=== PATIENT | male | born 1955 | race African-American/Black ===

== ENCOUNTER 2018-09-30 22:47 | Inpatient (IN) | payer MEDICARE, OTHER ==
[~2018-09-30] VITALS: Ht 177.8 cm; Wt 82.3 kg
[~2018-09-30 22:47] MED LIST: NKM
--- NOTE | 2018-09-30 23:19 | Emergency Room Report ---
History of Present Illness General Chief Complaint: Altered Level of Consciousness Source: Patient, EMS Present Illness HPI Patient is a 62-year-old male presented after increased altered mental status and had a near syncopal episode. Patient stated that he "fell out"Patient denies any current complaints. He denies any recent alcohol or drug use. He denies any headache. Patient said he had onset of symptoms approximately 7 PM. He denies taking any medications currently. Allergies: Coded Allergies: MORPHINE (Verified Allergy, Mild, 12/14/09) Patient History Past Medical History: see triage record Reviewed Nursing Documentation: PMH: Agreed; PSxH: Agreed Nursing Documentation-PMH Past Medical History: No Stated History Review of Systems All Other Systems: limited - Review of systems: Review systems is limited by patient's being a poor historian Physical Exam Vital Signs Date Time Temp Pulse Resp B/P (MAP) Pulse Ox O2 Delivery O2 Flow Rate FiO2 09/30/18 22:41 98.2 97 18 158/100 97 Room Air Sp02 EP Interpretation: reviewed, normal General Appearance: normal inspection, well appearing, no apparent distress, alert, GCS 15 Head: atraumatic ENT: normal ENT inspection, hearing grossly normal, normal voice Neck: normal inspection, full range of motion, supple, no bony tend Respiratory: normal inspection, lungs clear, normal breath sounds, no respiratory distress, no retraction, no wheezing Cardiovascular #1: regular rate, rhythm, no edema Gastrointestinal: normal inspection, normal bowel sounds, non tender, soft, no guarding, no hernia Genitourinary: no CVA tenderness Musculoskeletal: normal inspection, back normal, normal range of motion Neurologic: normal inspection, alert, responsive, speech normal Psychiatric: mood/affect normal Skin: normal inspection, normal color, no rash Medical Decision Making Diagnostic Impression: Primary Impression: Altered level of consciousness ER Course Patient presented for altered mental status. Differential diagnosis included but was not limited to ischemic stroke, subarachnoid hemorrhage, hypoglycemia, spinal cord injury, neurodegenerative disorder, urinary tract infection, hypoxemia. Because of complexity of patient's case laboratory testing and imaging studies were ordered. Patient was noted to have initially market confusion. Patient was noted to have EKG interpreted by me with normal sinus rhythm with a rate of [address] or T wave changes. Patient was noted to have prolonged QT. Patient given IV magnesium laboratory testing was essentially unremarkable. CT the head read by radiology showed global cortical involutional changes and sequela of chronic small vessel ischemia.Patient was discussed with Dr. Vadim Noel persistent confusion and uncontrolled hypertension. Patient was given medications for hypertension. Labs Test 09/30/18 23:30 10/01/18 00:03 White Blood Count 4.7 K/UL (4.8-10.8) Red Blood Count 5.08 M/UL (4.70-6.10) Hemoglobin 14.9 G/DL (14.2-18.0) Hematocrit 45.5 % (42.0-52.0) Mean Corpuscular Volume 90 FL (80-99) Mean Corpuscular Hemoglobin 29.3 PG (27.0-31.0) Mean Corpuscular Hemoglobin Concent 32.7 G/DL (32.0-36.0) Red Cell Distribution Width 15.2 % (11.6-14.8) Platelet Count 206 K/UL (150-450) Mean Platelet Volume 5.9 FL (6.5-10.1) Neutrophils (%) (Auto) 60.0 % (45.0-75.0) Lymphocytes (%) (Auto) 25.7 % (20.0-45.0) Monocytes (%) (Auto) 8.6 % (1.0-10.0) Eosinophils (%) (Auto) 4.5 % (0.0-3.0) Basophils (%) (Auto) 1.2 % (0.0-2.0) Urine Color Yellow Urine Appearance Cloudy Urine pH 6 (4.5-8.0) Urine Specific [place] 1.015 (1.005-1.035) Urine Protein 3+ (NEGATIVE) Urine Glucose (UA) Negative (NEGATIVE) Urine Ketones Negative (NEGATIVE) Urine Blood 5+ (NEGATIVE) Urine Nitrite Negative (NEGATIVE) Urine Bilirubin Negative (NEGATIVE) Urine Urobilinogen 1 MG/DL (0.0-1.0) Urine Leukocyte Esterase 1+ (NEGATIVE) Urine RBC Tntc /HPF (0 - 0) Urine WBC 2-4 /HPF (0 - 0) Urine Squamous Epithelial Cells Few /LPF (NONE/OCC) Urine Bacteria Moderate /HPF (NONE) Sodium Level 140 MMOL/L (136-145) Potassium Level 3.7 MMOL/L (3.5-5.1) Chloride Level 103 MMOL/L (98-107) Carbon Dioxide Level 28 MMOL/L (21-32) Anion Gap 9 mmol/L (5-15) Blood Urea Nitrogen 22 mg/dL (7-18) Creatinine 1.7 MG/DL (0.55-1.30) Estimat Glomerular Filtration Rate 49.9 mL/min (>60) Glucose Level 100 MG/DL (74-106) Calcium Level 10.0 MG/DL (8.5-10.1) Magnesium Level 1.9 MG/DL (1.8-2.4) Total Bilirubin 0.6 MG/DL (0.2-1.0) Aspartate Amino Transf (AST/SGOT) 15 U/L (15-37) Alanine Aminotransferase (ALT/SGPT) 13 U/L (12-78) Alkaline Phosphatase 106 U/L (46-116) Troponin I 0.011 ng/mL (0.000-0.056) Total Protein 9.6 G/DL (6.4-8.2) Albumin 4.0 G/DL (3.4-5.0) Globulin 5.6 g/dL Albumin/Globulin Ratio 0.7 (1.0-2.7) Thyroid Stimulating Hormone (TSH) 0.964 uiU/mL (0.358-3.740) Urine Opiates Screen Negative (NEGATIVE) Urine Barbiturates Screen Negative (NEGATIVE) Phencyclidine (PCP) Screen Negative (NEGATIVE) Urine Amphetamines Screen Negative (NEGATIVE) Urine Benzodiazepines Screen Negative (NEGATIVE) Urine Cocaine Screen Negative (NEGATIVE) Urine Marijuana (THC) Screen Negative (NEGATIVE) Last Vital Signs Date Time Temp Pulse Resp B/P (MAP) Pulse Ox O2 Delivery O2 Flow Rate FiO2 09/30/18 22:41 98.2 97 18 158/100 97 Room Air Status: unchanged Disposition: PLACE IN OBSERVATION Condition: Stable Tyrel Gibson MD Sep 30, 2018 23:19
[2018-10-01] VITALS (9 sets, daily range): BP systolic 134–175; BP diastolic 86–146
[2018-10-01 00:07] LABS: BILIRUBIN, URINE NEGATIVE (NEGATIVE); GLUCOSE, URINE (UA) NEGATIVE (NEGATIVE); KETONES,URINE NEGATIVE (NEGATIVE); LEUKOCYTE ESTERASE ,URINE 1+ (NEGATIVE); NITRITE,URINE NEGATIVE (NEGATIVE); PH,URINE 6 (4.5-8.0); PROTEIN,URINE 3+ (NEGATIVE); UROBILINOGEN,URINE 1 MG/DL (0.0-1.0)
--- NOTE | 2018-10-01 00:08 | NUR ---
ER Nurse Note: [place] c/[place] increased AMS. Per EMS, pt was was waiting for the bus, pt became more lethargic. Pt is a&ox2, to name and time. Pt has difficutly concentraiting. Unable to get PMH, denies taking meds, alcohol, drugs. Pt VSS, no signs of distress, denies pain. Puiples reactive to light, full strength in all extremities. ERMD at pt side; will continue to montior.
[2018-10-01 00:17] LABS: BASOPHILS % (AUTO) 1.2 % (0.0-2.0); EOSINOPHILS % (AUTO) 4.5 % (0.0-3.0); HEMATOCRIT 45.5 % (42.0-52.0); HEMOGLOBIN 14.9 G/DL (14.2-18.0); LYMPHOCYTES % (AUTO) 25.7 % (20.0-45.0); MEAN CORPUSCULAR VOLUME 90 FL (80-99); MONOCYTES % (AUTO) 8.6 % (1.0-10.0); PLATELET COUNT 206 K/UL (150-450); RED BLOOD COUNT 5.08 M/UL (4.70-6.10); RED CELL DISTRIBUTION WIDTH 15.2 % (11.6-14.8); WHITE BLOOD COUNT 4.7 K/UL (4.8-10.8)
[2018-10-01 00:33] LABS: ALANINE AMINOTRANSFERASE 13 U/L (12-78); ALBUMIN/GLOBULIN RATIO 0.7 (1.0-2.7); ALKALINE PHOSPHATASE 106 U/L (46-116); ANION GAP 9 mmol/L (5-15); ASPARTATE AMINO TRANSFERASE 15 U/L (15-37); BILIRUBIN,TOTAL 0.6 MG/DL (0.2-1.0); BLOOD UREA NITROGEN 22 mg/dL (7-18); CARBON DIOXIDE 28 MMOL/L (21-32); CHLORIDE 103 MMOL/L (98-107); CREATININE 1.7 MG/DL (0.55-1.30); POTASSIUM 3.7 MMOL/L (3.5-5.1); SODIUM 140 MMOL/L (136-145)
[2018-10-01 00:42] LABS: APPEARANCE,URINE CLOUDY; COLOR,URINE YELLOW
--- NOTE | 2018-10-01 01:39 | NUR ---
ER Nurse Note: Pt able to follow commands, answer questions approately, no signs of distress; denies pain. BP 104/112, ERMD aware. Pt calm, asleep. Will continue to montior.
--- NOTE | 2018-10-01 04:40 | NUR ---
ER Nurse Note: Pt asleep, no signs of distress. IVSL on right AC. Awaiting decision if pt wants to be admitted. All safety measures met; will continue to montior.
--- NOTE | 2018-10-01 05:00 | NUR ---
ER Nurse Note: Monitioring BP. ERMD aware of VS. Pt has been ave 170/100. BP med ordered. Pt asymptomatic. Will continue to montior.
--- NOTE | 2018-10-01 07:12 | NUR ---
ER Nurse Note: Report given to VAHE Esposito for conitnuiy of care. Tried to give report at 0620; nurse busy. Pt a&ox2, no signs of distress.
--- NOTE | 2018-10-01 07:32 | NUR ---
ED Nurse Note: Gave telephone report to VAHE Massey.
--- NOTE | 2018-10-01 07:46 | NUR ---
ED Nurse Note: Pt was transferred up to tele unit. No acute distress noted. Left Er w/ all belongings.
--- NOTE | 2018-10-01 07:46 | NUR ---
NURSE NOTES: Received report from ED nurse Cate RN. Patient is transferred from ED to Tele. Inventory check done, all belongings with patient. Heart monitor placed, Vital sign checked, Patient alert and oriented *2. Patient is in stable condition, No distress/SOB noted. Bed in low position, Call light in reach, Will continue plan of care.
[2018-10-01] MEDS ORDERED: Lisinopril 10mg tab ORAL SCH (09:00)
--- NOTE | 2018-10-01 09:26 | NUR ---
NURSE NOTES: dr noel ordered transfer pt to [facility], per Dr Noel, no need for PT eval.
--- NOTE | 2018-10-01 10:20 | Diagnostic Imaging Report ---
Indications: Altered mental status Technique: Spiral acquisitions obtained through the brain. Angled axial and coronal 5 x 5 mm slices were reconstructed. Total dose length product 1435.91 mGycm. CTDI vol(s) 70.38 mGy. Dose reduction achieved using automated exposure control Comparison: None. Findings: There is age-related enlargement of the ventricles and extra axial CSF spaces. There is periventricular deep white matter low-attenuation, consistent with chronic ischemic change. Old lacunar infarct is seen in the right fuentes radiata. No acute intracranial hemorrhage nor edema. No mass effect nor midline shift. The calvarium is intact. The mastoids are clear. The included orbits are unremarkable. 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 The CT scanner at [facility] is accredited by the [employer] and the scans are performed using protocols designed to limit radiation exposure to as low as reasonably achievable to attain images of sufficient resolution adequate for diagnostic evaluation.
--- NOTE | 2018-10-01 11:09 | NUR ---
CASE MANAGEMENT:REVIEW 62 YR OLD MALE BIBA FROM BUS STOP CC: ALOC SI: ALOC 98.2 97 18 158/100 97% ON RA BUN+22 CR+1.7 IS: IV MAG SULFATE CT HEAD URINE CX : TO TELEMETRY PLAN: SOCIAL SERVICE CONSULT TO LOCATE FAMILY NEURO CHECKS Q4HRS
--- NOTE | 2018-10-01 11:50 | NUR ---
NURSE NOTES: Patient transferred to [facility] 4E, Report given to Kelsey /RN. Inventory check done, All belongings with the patient.
--- NOTE | 2018-10-01 12:04 | NUR ---
*-* NO INSURANCE INFORMATION IN THE BAR UNABLE TO SEND CLINICALS OR REVIEWS *-*
--- NOTE | 2018-10-01 12:10 | NUR ---
nurse notes received patient from tele via wheelchair, patient awake, confused , wants to go home,holding all his clothes ready to leave the hospital, ambulatory with steady gait, no sign of distress, HL patent, on fall precaution observed and maintained, kept clean dry and intact, will call Dr Noel for sitter,will continue to monitor patient condition
--- NOTE | 2018-10-01 13:01 | NUR ---
Social Service Note SERAFIN met with patient to obtain emergency contact information. Patient is awake, verbally responsive however is a poor historian. Patient unable to provided contact numbers. SERAFIN completed a skip trace and located patient's sister Meme Oliveira [phone]. Sister states patient has suffered 7 peterson and has a history of mental health disorder. Sister will come to the hospital to see patient and contact additional family members. SERAFIN informed primary nurse.
--- NOTE | 2018-10-01 16:30 | History and Physical Report ---
DATE OF ADMISSION: 10/01/2018 HISTORY OF PRESENT ILLNESS: This is a 62-year-old male, who came to the hospital with reports of his near syncopal episode. The patient is a very poor historian and he may have underlying organic brain disease. He states he fell out. Currently on my evaluation, he states he has no complaints and is anxious to go home. However, he is unable to list a phone number or a proper address. He has also been noted to be markedly hypertensive, he states he is not taking any home medications. ALLERGIES: Listed to morphine. HOME MEDICATIONS: The patient denies. PAST SURGICAL HISTORY: The patient denies. SOCIAL HISTORY: The patient unable to provide any clear history. FAMILY HISTORY: Noncontributory. REVIEW OF SYSTEMS: She denies any headaches, hematemesis, melena, or hematochezia. PHYSICAL EXAMINATION: GENERAL: Revealed a 62-year-old male. VITAL SIGNS: Blood pressure at this time is 160/105, heart rate is 86, respirations 18, and he is afebrile. HEENT: Unremarkable. LUNGS: Clear breath sounds bilaterally. Normal heart sounds. ABDOMEN: Soft. NEUROLOGIC: Nonfocal. LABORATORY DATA: Lab testing shows white count 4.7, otherwise normal CBC and BMP. Creatinine 1.7. Toxicology is negative. Urinalysis shows too numerous WBC. IMPRESSION: 1. Near syncope. 2. Hypertension. 3. 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 DISCUSSION: The patient underwent a head CT, which showed global cortical involutional changes and sequelae of chronic small vessel ischemia. The patient is confused and has hypertension, which is the reason for his admission. At this time, blood pressure will be monitored. I will start him on lisinopril, also add clonidine p.r.n. We will consult Cardiology. We will also consult social work to try and find placement we will follow carefully. Vadim Noel M.D. DR: GEETHA JOB#: [id number] CC:
--- NOTE | 2018-10-01 17:22 | Cardiology Report ---
APPROVED REPORT EKG Measurement Heart [id number] Sinus rhythm with marked sinus arrhythmia Moderate voltage criteria for LVH, may be normal variant Borderline ECG
--- NOTE | 2018-10-01 19:09 | NUR ---
NURSE NOTES: Received patient on bed sleeping, no s/s of any distress, sitter at bedside. IV line patent and intact, Bed in low positiona nd locked, call light within reach, will continue to monitor.
--- NOTE | 2018-10-01 19:09 | NUR ---
HAND-OFF: Report given to CORY TODD RN.
[2018-10-01] MEDS: Lisinopril 10mg tab ORAL SCH (21:26)
--- NOTE | 2018-10-01 21:37 | Cardiology Progress Note ---
Assessment/Plan Assessment/Plan The patient is seen and examined, full consult note will be dictated shortly. Objective Last 24 Hour Vital Signs Date Time Temp Pulse Resp B/P (MAP) Pulse Ox O2 Delivery O2 Flow Rate FiO2 10/01/18 21:26 134/96 10/01/18 20:12 97.3 99 18 134/96 (109) 98 10/01/18 16:00 98.6 97 22 156/100 (118) 98 10/01/18 16:00 150/103 (119) 10/01/18 12:10 97.4 89 20 175/146 (156) 97 10/01/18 12:10 Room Air 10/01/18 12:08 175/146 10/01/18 09:31 Room Air 10/01/18 09:04 167/115 10/01/18 08:00 97.0 86 20 167/115 (132) 97 10/01/18 07:45 98.0 74 12 132/93 98 Room Air 10/01/18 07:00 98.3 86 17 156/96 98 Room Air 10/01/18 05:35 82 18 165/86 98 Room Air 10/01/18 05:31 162/103 10/01/18 03:10 90 20 158/110 99 Room Air 10/01/18 01:38 98.2 88 16 160/112 97 Room Air 10/01/18 00:03 98.2 84 18 158/100 97 Room Air 10/01/18 00:03 97 18 Room Air 09/30/18 22:41 98.2 97 18 158/100 97 Room Air Intake and Output 09/30/18 10/01/18 18:59 06:59 Intake Total 100 ml Balance 100 ml IV Total 100 ml # Voids 1 Laboratory Tests Test 09/30/18 23:30 10/01/18 00:03 White Blood Count 4.7 K/UL (4.8-10.8) L Red Blood Count 5.08 M/UL (4.70-6.10) Hemoglobin 14.9 G/DL (14.2-18.0) Hematocrit 45.5 % (42.0-52.0) Mean Corpuscular Volume 90 FL (80-99) Mean Corpuscular Hemoglobin 29.3 PG (27.0-31.0) Mean Corpuscular Hemoglobin Concent 32.7 G/DL (32.0-36.0) Red Cell Distribution Width 15.2 % (11.6-14.8) H Platelet Count 206 K/UL (150-450) Mean Platelet Volume 5.9 FL (6.5-10.1) L Neutrophils (%) (Auto) 60.0 % (45.0-75.0) Lymphocytes (%) (Auto) 25.7 % (20.0-45.0) Monocytes (%) (Auto) 8.6 % (1.0-10.0) Eosinophils (%) (Auto) 4.5 % (0.0-3.0) H Basophils (%) (Auto) 1.2 % (0.0-2.0) Urine Color Yellow Urine Appearance Cloudy Urine pH 6 (4.5-8.0) Urine Specific [place] 1.015 (1.005-1.035) Urine Protein 3+ (NEGATIVE) H Urine Glucose (UA) Negative (NEGATIVE) Urine Ketones Negative (NEGATIVE) Urine Blood 5+ (NEGATIVE) H Urine Nitrite Negative (NEGATIVE) Urine Bilirubin Negative (NEGATIVE) Urine Urobilinogen 1 MG/DL (0.0-1.0) H Urine Leukocyte Esterase 1+ (NEGATIVE) H Urine RBC Tntc /HPF (0 - 0) H Urine WBC 2-4 /HPF (0 - 0) Urine Squamous Epithelial Cells Few /LPF (NONE/OCC) Urine Bacteria Moderate /HPF (NONE) H Sodium Level 140 MMOL/L (136-145) Potassium Level 3.7 MMOL/L (3.5-5.1) Chloride Level 103 MMOL/L (98-107) Carbon Dioxide Level 28 MMOL/L (21-32) Anion Gap 9 mmol/L (5-15) Blood Urea Nitrogen 22 mg/dL (7-18) H Creatinine 1.7 MG/DL (0.55-1.30) H Estimat Glomerular Filtration Rate 49.9 mL/min (>60) Glucose Level 100 MG/DL (74-106) Calcium Level 10.0 MG/DL (8.5-10.1) Magnesium Level 1.9 MG/DL (1.8-2.4) Total Bilirubin 0.6 MG/DL (0.2-1.0) Aspartate Amino Transf (AST/SGOT) 15 U/L (15-37) Alanine Aminotransferase (ALT/SGPT) 13 U/L (12-78) Alkaline Phosphatase 106 U/L (46-116) Troponin I 0.011 ng/mL (0.000-0.056) Total Protein 9.6 G/DL (6.4-8.2) H Albumin 4.0 G/DL (3.4-5.0) Globulin 5.6 g/dL Albumin/Globulin Ratio 0.7 (1.0-2.7) L Thyroid Stimulating Hormone (TSH) 0.964 uiU/mL (0.358-3.740) Urine Opiates Screen Negative (NEGATIVE) Urine Barbiturates Screen Negative (NEGATIVE) Phencyclidine (PCP) Screen Negative (NEGATIVE) Urine Amphetamines Screen Negative (NEGATIVE) Urine Benzodiazepines Screen Negative (NEGATIVE) Urine Cocaine Screen Negative (NEGATIVE) Urine Marijuana (THC) Screen Negative (NEGATIVE) Sam Dixon MD Oct 01, 2018 21:37
[2018-10-02 00:11] VITALS: BP 155/100
[2018-10-02 04:21] VITALS: BP 144/100
[2018-10-02 07:59] VITALS: BP 146/106
--- NOTE | 2018-10-02 08:45 | Pulmonology Progress Note ---
Assessment/Plan Assessment/Plan 1. Near syncope. 2. Hypertension. 3. 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 DISCUSSION: The patient underwent a head CT, which showed global cortical involutional changes and sequelae of chronic small vessel ischemia. The patient is confused and has hypertension, which is the reason for his admission. At this time, blood pressure is better controlled. Discussed with RN DC home with family ([employer] at bedside; family has filed missing person report) WIll dc home with assistance from SW Added Lisinopril Subjective Interval Events: Doing well; BP on the higher side Constitutional: Reports: no symptoms HEENT: Repors: no symptoms Respiratory: Reports: no symptoms Cardiovascular: Reports: no symptoms Gastrointestinal/Abdominal: Reports: no symptoms Genitourinary: Reports: no symptoms Neurologic: Reports: no symptoms Allergies: Coded Allergies: MORPHINE (Verified Allergy, Mild, 12/14/09) Objective Last 24 Hour Vital Signs Date Time Temp Pulse Resp B/P (MAP) Pulse Ox O2 Delivery O2 Flow Rate FiO2 10/02/18 07:59 98.0 94 20 146/106 (119) 97 10/02/18 04:21 97.9 65 18 144/100 (115) 98 10/02/18 00:11 97.5 95 18 155/100 (118) 98 10/01/18 21:26 134/96 10/01/18 21:00 Room Air 10/01/18 20:12 97.3 99 18 134/96 (109) 98 10/01/18 16:00 98.6 97 22 156/100 (118) 98 10/01/18 16:00 150/103 (119) 10/01/18 12:10 97.4 89 20 175/146 (156) 97 10/01/18 12:10 Room Air 10/01/18 12:08 175/146 10/01/18 09:31 Room Air 10/01/18 09:04 167/115 Intake and Output 10/01/18 10/02/18 19:00 07:00 Intake Total 360 ml Balance 360 ml Intake Oral 360 ml # Voids 1 1 # Bowel Movements 1 General Appearance: no acute distress HEENT: normocephalic Respiratory/Chest: chest wall non-tender, lungs clear Cardiovascular: normal peripheral pulses, normal rate Abdomen: normal bowel sounds, soft, non tender Extremities: no cyanosis Microbiology Date/Time Source Procedure Growth Status 09/30/18 23:30 Urine,Clean Catch Urine Culture - Preliminary NO GROWTH AFTER 24 HOURS Resulted Current Medications Medications (Trade) Dose Ordered Sig/Diaz Route PRN Reason Start Time Stop Time Status Last Admin Dose Admin Clonidine HCl (Catapres Tab) 0.1 mg Q4H PRN ORAL sBP>150; dbp>100 10/01/18 13:00 10/31/18 08:59 Lisinopril (Zestril) 10 mg Q12HR ORAL 10/01/18 21:00 10/31/18 20:59 10/01/18 21:26 Vadim Noel MD Oct 02, 2018 08:45
[2018-10-02] MEDS ORDERED: LISINOPRIL10 MG ORAL (08:46)
--- NOTE | 2018-10-02 08:47 | NUR ---
CHARGE NURSE NOTES: POLICE OFFERS AT STATION REQUESTING TO SEE PATIENT TO CONFIRM MISSINGS PERSON REPORT. PER OFFICERS, SON SOMMER BUCHANAN [phone] MISSING PERSON REPORT. DR. HUDSON AT STATION AND ATTEMPTED TO CALL NUMBER, NO ANSWER AND COULD NOT LEAVE MESSAGE. WILL NOTIFY [employer]I. Addendum: 10/02/18 at 0853 by SHARONA NOONAN RN RN MR. BUCHANAN IS FAMILY FRIEND/CAREGIVER WHO LIVES WITH PATIENT, NOT SON.
[2018-10-02] MEDS: Lisinopril 10mg tab ORAL SCH (08:57)
[2018-10-02 12:00] VITALS: BP 157/111
[2018-10-02 12:58] VITALS: BP 139/93
--- NOTE | 2018-10-02 13:05 | NUR ---
NURSE NOTES: Patient discharged home. IV removed and site covered. ID band removed and disposed of. Personal belongings inventory was done and belongings sent with patient. Patient needs met and patient kept comfortable at all times. Patient departed with family member.
--- NOTE | 2018-10-03 07:15 | Discharge Summary ---
Discharge Summary Discharge Summary _ DATE OF ADMISSION: 10/01/2018 DATE OF DISCHARGE: 10/02/2018 DISCHARGED BY: Dr. Pj Noel CONSULTANTS: Dr. Sam Dixon BRIEF HOSPITAL COURSE: Patient is a 62-year-old male who came to the hospital for reports of near syncopal episode. Patient is a poor historian and has underlying organic brain disease. He stated he fell out. He denied any other complaints. Denied any headache. Denied any medical history. On evaluation at ED, he was noted to have elevated blood pressure 158/100. He denied taking any antihypertensive medications. Blood work did not show any leukocytosis, hemoglobin and hematocrit were stable. Troponin was negative. Magnesium was 1.9. BUN was 22, creatinine 1.7.Urinalysis showed 3+ protein, negative nitrite, 1+ leukocyte esterase, TNTC RBC and 2-4 WBC. Urine toxicology was negative. EKG showed normal sinus rhythm with no acute ST or T wave changes. He was noted to have prolonged QT. CT of the head showed global cortical involutional changes and sequelae of chronic small vessel wall ischemia.He was given Clonidine and 1 gm Magnesium sulfate. He had persistent uncontrolled hypertension, he was then admitted for further elevation of confusion and elevated BP. He was admitted to monitored floor. He underwent cardiac evaluation. He was placed on neurochecks. Sitter was provided at bedside safety. He was placed on lisinopril for blood pressure control. He was transferred to a regular floor. Social service was contacted to aid with discharge. Family was located. Family also filed a missing person report. Patient was eventually discharged home with family. Due to negative workup and improvement in patient's condition, he was discharged home the next day. FINAL DIAGNOSES: Uncontrolled hypertension Encephalopathy/confusion DISPOSITION: Patient was discharged home. DISCHARGE MEDICATIONS: Refer to Discharge Medication List. DISCHARGE INSTRUCTIONS: Follow-up in a week. I have been assigned to complete a discharge summary on this account, I was not involved with the patient's management. Shelley Bell NP Oct 03, 2018 07:14
== END 2018-10-02 13:11 | disposition home or self-care (01) | DRG 72 ==
LOC: EDBD 22:47 → EMR 22:58 → 2E 10-01 04:57 → EDBEDREQ 10-01 05:33 → OBSVTOIN 10-01 07:23 → 4E 10-01 12:08
DX: G93.40 Encephalopathy, unspecified (principal); I10 Essential (primary) hypertension; R55 Syncope and collapse; G93.9 Disorder of brain, unspecified; Z88.6 Allergy status to analgesic agent
CPT/HCPCS: 36415; 70450; 80053; 80307; 81001; 83735; 84443; 84484; 85025; 87086; 93005; 96365; 99284